=== PATIENT | male | born 1980 | race Hispanic/Latino ===

== ENCOUNTER 2024-06-28 10:20 | Emergency (ER) | payer SELFPAY ==
[~2024-06-28] VITALS: Ht 165.1 cm; Wt 81.6 kg
[~2024-06-28 10:20] MED LIST: ULTRAM 50MG50 MG PO
[2024-06-28] MEDS: ALBUTEROL/IPRATROPIUM 3 ML NEB NEB ONE (11:01)
[2024-06-28 11:03] VITALS: PULSE 73; RESP 18; O2SAT 99
[2024-06-28 11:06] VITALS: PULSE 73; RESP 18; TEMP 98; O2SAT 99
[2024-06-28] MEDS ORDERED: AZITHROMYCIN250 MG PO (11:27)
[2024-06-28] MEDS ORDERED: ALBUTEROL0.63 MG/3 NEB (11:27)
[2024-06-28] MEDS ORDERED: PREDNISONE50 MG PO (11:27)
[2024-06-28] MEDS ORDERED: PROAIR DIGIHAL90 MCG INH (11:27)
== END 2024-06-28 11:54 | disposition home or self-care (01) ==
LOC: ER 10:26
DX: R05.9 Cough, unspecified (principal); J06.9 Acute upper respiratory infection, unspecified; J30.2 Other seasonal allergic rhinitis; E78.5 Hyperlipidemia, unspecified; F17.210 Nicotine dependence, cigarettes, uncomplicated
CPT/HCPCS: 94640; 94799; 99283